=== PATIENT | female | born 1985 | race Caucasian/White ===

== ENCOUNTER → 2016-11-02 | Outpatient (CLI) | payer BC | END | disposition disaster alternative care site (69) | LOC: GLAB 10:41 | DX: O46.90 Antepartum hemorrhage, unspecified, unspecified trimester (principal); O99.89 Other specified diseases and conditions complicating pregnancy, childbirth and the puerperium; E03.9 Hypothyroidism, unspecified ==

== ENCOUNTER → 2016-11-20 | Outpatient (CLI) | payer BC | END | disposition disaster alternative care site (69) | LOC: GLAB 10:00 | DX: O03.9 Complete or unspecified spontaneous abortion without complication (principal) ==

== ENCOUNTER → 2017-01-26 | Outpatient (CLI) | payer BC | END | disposition disaster alternative care site (69) | LOC: GRAD 15:40 | DX: K09.1 Developmental (nonodontogenic) cysts of oral region (principal); J32.4 Chronic pansinusitis ==